=== PATIENT | female | born 1940 | race Caucasian/White ===

== ENCOUNTER 2016-12-24 12:57 | Emergency (ER) | payer MEDICARE ==
[~2016-12-24] VITALS: Ht 165.1 cm; Wt 85.0 kg
[~2016-12-24 12:57] MED LIST: ASPI-496 PO; BUSP5TAB2 PO; CALCIUM PO; CELE200C PO; CHOL200026 PO; FERR325T20 PO; GABA300C10 PO; LEVO50TA5 PO; LISI1TAB3 PO; OXYC-302 PO; PRAV20TA2 PO; PROBIOTIC PO; TRAM50TA2 PO; VENL37.57 PO; VIT1TABL32 PO; ZOLP-413 PO; ZOLP5TAB6 PO
[2016-12-24] MEDS ORDERED: SODIUM CHLORIDE 0.9% 1,000 ML IV ONE (13:40)
[2016-12-24] MEDS ORDERED: SODIUM CHLORIDE FLUSH 10ML SYR IVF ONE (14:00)
[2016-12-24 14:26] LABS: HEMATOCRIT 35.1 % (34.6-47.8); HEMOGLOBIN 11.6 g/dL (11.7-16.4); WHITE BLOOD COUNT 8.8 x10^3/uL (3.4-10)
[2016-12-24 14:31] LABS: ASPARTATE AMINO TRANSFERASE 38 U/L (15-37); BLOOD UREA NITROGEN 16 mg/dL (7-18)
[2016-12-24 17:04] VITALS: BP 181/81
== END 2016-12-24 17:06 | disposition home or self-care (01) ==
LOC: ED 16:58
DX: R29.810 Facial weakness (principal); R51 Headache; Z87.891 Personal history of nicotine dependence
CPT/HCPCS: 36415; 70450; 70551; 71010; 80053; 81003; 85025; 85610; 85730; 93005; 96360; 96361; 99285; J7030

== ENCOUNTER → 2017-02-12 | Outpatient (CLI) | payer MEDICARE ==
[~2017-02-12] MED LIST changes: -CHOL200026 PO; +CHOL200059 PO; +FERR325T18 PO; -FERR325T20 PO
== END | disposition home or self-care (01) ==
LOC: CVU 15:46
PROVIDERS: ATTEND Family Medicine
DX: M79.661 Pain in right lower leg (principal); M25.561 Pain in right knee; M25.562 Pain in left knee; I10 Essential (primary) hypertension; E78.5 Hyperlipidemia, unspecified
CPT/HCPCS: 93922

== ENCOUNTER → 2019-08-03 | Outpatient (CLI) | payer MEDICARE ==
[~2019-08-03] MED LIST changes: +LISI1TAB23 PO; -LISI1TAB3 PO
== END | disposition home or self-care (01) ==
LOC: RAD 14:19
PROVIDERS: ATTEND Orthopaedic Surgery
DX: S82.852D Displaced trimalleolar fracture of left lower leg, subsequent encounter for closed fracture with routine healing (principal); R60.0 Localized edema; X58.XXXD Exposure to other specified factors, subsequent encounter

== ENCOUNTER → 2020-07-27 | Outpatient (CLI) | payer MEDICARE ==
[~2020-07-27] MED LIST changes: -OXYC-302 PO; +OXYC1TAB14 PO
== END | disposition home or self-care (01) ==
LOC: RAD 16:42
PROVIDERS: ATTEND Nurse Practitioner
DX: S82.092A Other fracture of left patella, initial encounter for closed fracture (principal); S80.212A Abrasion, left knee, initial encounter; M79.662 Pain in left lower leg; X58.XXXA Exposure to other specified factors, initial encounter; Y92.89 Other specified places as the place of occurrence of the external cause; Y93.89 Activity, other specified; Y99.8 Other external cause status